=== PATIENT | male | born 1955 | race Caucasian/White ===

== ENCOUNTER 2016-11-11 07:05 | Day surgery (SDC) | payer BC ==
[~2016-11-11 07:05] MED LIST: ALPRAZolam 0.25 MG TAB PO PRN; ALPRAZolam 0.5 MG TAB PO PRN; ATORVASTATIN 80 MG TAB PO STA; NITROGLYCERIN SL TABS 0.4 MG TAB SUBLINGUAL PRN; SODIUM CHLORIDE 0.9% 1,000 ML in EMPTY BAG 1 BAG IV ONE
[2016-11-11 07:50] VITALS: PULSE 54; TEMP 97.4
[2016-11-11] MEDS ORDERED: ASPIRIN 325 MG TAB PO ONE (07:52)
[2016-11-11] MEDS ORDERED: fentaNYL (PF) 50 MCG/ML 2 ML AMP IV ONE (08:47)
[2016-11-11] MEDS ORDERED: SODIUM CHLORIDE 0.9% 1,000 ML IV ONE (08:48)
[2016-11-11] MEDS ORDERED: LIDOCAINE 2% INJ 20 MG/ML SQ ONE (08:51)
[2016-11-11] MEDS ORDERED: IOHEXOL 350 MG/ML 100 ML BOTTLE INTRATHECA ONE (09:05)
[2016-11-11] MEDS ORDERED: RX INFO: IV CONTRAST WAS GIVEN 1 EACH MISC MISCELLANE PRN (09:22)
[2016-11-11] MEDS ORDERED: NITROGLYCERIN SL TABS 0.4 MG TAB SUBLINGUAL PRN (09:23)
[2016-11-11] MEDS ORDERED: SODIUM CHLORIDE 0.9% 1,000 ML IV SCH (10:30)
[2016-11-11 14:44] VITALS: BP 105/71
[2016-11-11 14:46] VITALS: RESP 18
--- NOTE | 2016-11-11 20:15 | CC ---
DATE OF SERVICE: 11/12/2015 [facility]#[id number] CLINICAL INFORMATION: Vivek Whitfield is a known patient of hypertension, hypercholesterolemia and long-standing history of smoking, current smoker and had angioplasty stenting of the right coronary done in 2011, mid and distal RCA. Has been having chest pains and positive stress echo with inferior wall hypokinesis, advised cardiac catheterization to assess severity of coronary artery disease. Patient is on appropriate medications, cannot tolerate the beta blockers without severe bradycardia. The patient is on calcium blockers and nitrates. The patient continues to smoke in spite of advised to quit smoking. Patient tolerated the procedure very well. Patient is under conscious sedation for about 35 minutes. PROCEDURE: Under local anesthesia and conscious sedation, right femoral artery is cannulated using a Seldinger technique 6 Sami sheath was placed and proceeded with right and left heart selective coronary arteriography followed by left ventriculogram and common femoral angiogram and Angio-Seal. Patient tolerated the procedure very well. There were no complications during or after completion of the procedure. HEMODYNAMIC DATA: Aortic pressure noted to be 106/64 with a mean pressure of 82. Left ventricular end-diastolic pressure following coronary arteriography noted to be 60 mmHg. There was no gradient across the aortic valve. Left ventriculogram performed in 30 degree SANTOS projection revealed a normal cardiac silhouette with well-preserved left ventricular systolic function with ejection fraction of 50-55%. SELECTIVE CORONARY ARTERIOGRAPHY: LEFT MAIN: Left main coronary artery is free of any atherosclerotic occlusive disease. LEFT ANTERIOR DESCENDING CORONARY ARTERY: Left anterior descending artery is a moderate caliber vessel free of any atherosclerotic occlusive disease throughout its course. Intermediate is a good caliber blood vessel, free of any atherosclerotic occlusive disease. CIRCUMFLEX CORONARY ARTERY: Circumflex is a nondominant limited distribution mild irregularities not exceeding 20-30% similar to what it was in 2012. RIGHT CORONARY ARTERY: Right coronary artery is totally occluded in its midsection with the distal vessels are large vessels, visualized collaterals from the left system. ASSESSMENT: Single-vessel coronary artery disease with ( ) collaterals to the distal right coronary artery from the left system. Normal left ventricular function. RECOMMENDATIONS: Continued medical therapy and risk factor modification and complete cessation of smoking would be beneficial. Patient advised limited activities. No driving for 2 days and we will see him in 2 or 3 days from now.
[2016-11-11] MEDS ORDERED: ATORVASTATIN 40 MG TAB PO SCH (21:00)
[2016-11-12] MEDS ORDERED: amLODIPine 2.5 MG TAB PO SCH (09:00)
[2016-11-12] MEDS ORDERED: LISINOPRIL 20 MG TAB PO SCH (09:00)
[2016-11-12] MEDS ORDERED: ISOSORBIDE MONONITRATE ER 30 MG TAB.ER.24H PO SCH (09:00)
== END 2016-11-11 14:35 | disposition home or self-care (01) ==
LOC: CATHCVL 07:05
PROVIDERS: ATTEND Internal Medicine Interventional Cardiology
DX: I25.110 Atherosclerotic heart disease of native coronary artery with unstable angina pectoris (principal); I10 Essential (primary) hypertension; E78.00 Pure hypercholesterolemia, unspecified; R94.39 Abnormal result of other cardiovascular function study; E78.5 Hyperlipidemia, unspecified; Z95.5 Presence of coronary angioplasty implant and graft; J44.9 Chronic obstructive pulmonary disease, unspecified; K21.9 Gastro-esophageal reflux disease without esophagitis; Z82.49 Family history of ischemic heart disease and other diseases of the circulatory system; I25.2 Old myocardial infarction; F17.210 Nicotine dependence, cigarettes, uncomplicated; Z79.82 Long term (current) use of aspirin; Z79.899 Other long term (current) drug therapy; Z88.6 Allergy status to analgesic agent
CPT/HCPCS: 93458; 99152; C1760; C1894; C1769; J2001; Q9967; J3010

== ENCOUNTER → 2018-10-06 | Outpatient (CLI) | payer BC ==
[2018-10-06 08:40] LABS: HCT 47.9 % (39.0-53.0); MCH 32.5 pg (25.0-35.0); MCHC 33.5 g/dL (31.0-37.0); MCV 97.1 fL (80.0-100.0); Platelet Count 221 k/uL (150-450); RBC 4.93 m/uL (4.30-5.90); RDW 12.9 % (11.5-15.5); WBC 6.2 k/uL (3.8-10.6)
[2018-10-06 08:54] LABS: Anion Gap 5 mmol/L; Blood Urea Nitrogen 12 mg/dL (9-20); Carbon Dioxide 28 mmol/L (22-30); Chloride 106 mmol/L (98-107); Potassium 4.6 mmol/L (3.5-5.1); Sodium 139 mmol/L (137-145)
== END | disposition home or self-care (01) ==
LOC: LABWHC1 08:07
PROVIDERS: ATTEND Internal Medicine Interventional Cardiology
DX: Z01.812 Encounter for preprocedural laboratory examination (principal); I25.10 Atherosclerotic heart disease of native coronary artery without angina pectoris; E78.00 Pure hypercholesterolemia, unspecified
CPT/HCPCS: 36415; 80051; 82565; 84520; 85027

== ENCOUNTER 2018-10-16 09:31 | Day surgery (SDC) | payer BC ==
[2018-10-13 16:10] VITALS: BMI 23.3
[~2018-10-16 09:31] MED LIST changes: +ATORVASTATIN 80 MG TAB PO ONE; -ATORVASTATIN 80 MG TAB PO STA
[2018-10-16] MEDS ORDERED: SODIUM CHLORIDE 0.9% 1,000 ML IV ONE (09:50)
[2018-10-16 10:08] VITALS: TEMP 97.8
[2018-10-16] MEDS ORDERED: VERAPAMIL 2.5 MG/ML 2 ML AMP ONE (10:10)
[2018-10-16] MEDS ORDERED: LIDOCAINE 1% INJ 10MG/ML (20 ML MDV) ONE (10:11)
[2018-10-16] MEDS ORDERED: HEPARIN SODIUM 1,000 UN/ML (10ML VL) ONE (10:11)
[2018-10-16] MEDS ORDERED: MIDAZOLAM (PF) 2 MG/2 ML VIAL IVP ONE (10:42)
[2018-10-16] MEDS ORDERED: LIDOCAINE 1% INJ 10MG/ML (20 ML MDV) SQ ONE (10:48)
[2018-10-16] MEDS ORDERED: IOPAMIDOL-370 125ML BTL INJ ONE (10:58)
[2018-10-16] MEDS ORDERED: RX INFO: IV CONTRAST WAS GIVEN 1 EACH MISC MISCELLANE PRN (11:05)
[2018-10-16] MEDS ORDERED: SODIUM CHLORIDE 0.9% 1,000 ML IV SCH (11:15)
[2018-10-16 11:24] VITALS: RESP 16
--- NOTE | 2018-10-16 12:14 | CC ---
CARDIAC CATHETERIZATION REPORT DATE OF SERVICE: 10/16/2018 PERFORMING PHYSICIAN: Stan Carranza MD, Sound Equipment Mechanic. PROCEDURE PERFORMED: 1. Selective right and left coronary angiogram. 2. Left heart catheterization. INDICATION: This is a pleasant 70-year-old gentleman with history of coronary artery disease and prior stenting of the RCA and left circumflex, was experiencing symptoms of chest discomfort concerning for angina. Unfortunately, he continues to smoke. Because of that, a heart catheterization was advised. APPROACH: Right common femoral artery. COMPLICATION: None LEVEL OF SEDATION: Moderate with sedation length of 12 minutes. PROCEDURE DESCRIPTION: After obtaining an informed consent, the patient was brought to the cardiac ship laborer. The right common femoral artery was cannulated using micropuncture technique, the micropuncture wire passed easily then I placed a 6-[place] sheath in the right common femoral artery. After that, I did selective right and left coronary angiogram using JR3.5 and JL3.5 catheters. Left heart catheterization was performed using 5-Pakistani pigtail catheter. The procedure was completed without any complication. SELECTIVE CORONARY ANGIOGRAM: 1. The RCA is stented in the proximal, mid and distal portion. The stents are patent. The RCA distally bifurcates into PDA and PLV branches, both appeared to be angiographically normal. 2. The left main is angiographically normal. It bifurcates into left circumflex, ramus intermedius, and left anterior descending artery. 3. The left circumflex is a large caliber vessel and is a nondominant vessel. The left circumflex appeared to be angiographically normal. 4. The ramus intermedius appeared to be a moderate caliber vessel and seems to be angiographically patent stents in both the RCA and LCX. POSTPROCEDURE MANAGEMENT: 1. Maximize medical treatment. 2. Smoking cessation. MMODL / IJN: [id number] /
[2018-10-16 18:25] VITALS: BP 125/86; PULSE 48
== END 2018-10-16 18:20 | disposition home or self-care (01) ==
LOC: CATHCVL 09:31
PROVIDERS: ATTEND Internal Medicine Interventional Cardiology
DX: I25.110 Atherosclerotic heart disease of native coronary artery with unstable angina pectoris (principal); I10 Essential (primary) hypertension; E78.5 Hyperlipidemia, unspecified; E78.00 Pure hypercholesterolemia, unspecified; F17.290 Nicotine dependence, other tobacco product, uncomplicated; F17.210 Nicotine dependence, cigarettes, uncomplicated; I73.9 Peripheral vascular disease, unspecified; Z95.5 Presence of coronary angioplasty implant and graft; Z82.49 Family history of ischemic heart disease and other diseases of the circulatory system; Z79.82 Long term (current) use of aspirin; Z79.02 Long term (current) use of antithrombotics/antiplatelets; Z79.899 Other long term (current) drug therapy; Z88.6 Allergy status to analgesic agent
CPT/HCPCS: 93458; C1760; C1769 ×2; C1894; J2001; Q9967; J2250; 93454

== ENCOUNTER 2020-06-29 07:47 | Day surgery (SDC) | payer BC, OTHER ==
[2020-06-27 09:35] VITALS: BMI 23.2
[~2020-06-29 07:47] MED LIST changes: +ASPIRIN 325 MG TAB PO STA; -ATORVASTATIN 80 MG TAB PO ONE; +ATORVASTATIN 80 MG TAB PO STA
[2020-06-29 08:34] VITALS: RESP 16; TEMP 97.4
[2020-06-29] MEDS ORDERED: LIDOCAINE 1% INJ 10MG/ML (20 ML MDV) ONE (08:47)
[2020-06-29] MEDS ORDERED: LIDOCAINE 1% INJ 10MG/ML (20 ML MDV) SQ ONE (08:59)
[2020-06-29] MEDS ORDERED: MIDAZOLAM 2 MG/2 ML VIAL IV ONE (08:59)
[2020-06-29] MEDS ORDERED: IOPAMIDOL-370 125ML BTL INJ ONE (09:08)
[2020-06-29] MEDS ORDERED: RX INFO: IV CONTRAST WAS GIVEN 1 EACH MISC MISCELLANE PRN (09:15)
[2020-06-29] MEDS ORDERED: SODIUM CHLORIDE 0.9% 1,000 ML IV SCH (09:15)
--- NOTE | 2020-06-29 11:44 | CC ---
CARDIAC CATHETERIZATION REPORT DATE OF SERVICE: June 29, 2020 PERFORMING PHYSICIAN: Stan Carranza MD. PROCEDURE PERFORMED: 1. Selective right and left coronary angiogram. 2. Left heart catheterization. INDICATION: This is a 64-year-old gentleman with coronary artery disease and prior stenting of the RCA and LCX as well as hypertension and dyslipidemia who was experiencing symptoms of shortness of breath with exertion. He underwent a stress test and that came in to be abnormal with moderate size reversible defect involving the basal inferior wall of the LV. Because of that, a heart catheterization was advised. APPROACH: Right common femoral artery. COMPLICATION: None. LEVEL OF SEDATION: Moderate with sedation length of 11 minutes. PROCEDURE DESCRIPTION: After obtaining an informed consent, the patient was brought to the cardiac tree tapping laborer. The right common femoral artery was cannulated using micropuncture technique, the micropuncture wire passed easily then I placed a 6-[place] sheath at the right common femoral artery. Selective right and left coronary angiogram done using JR3.5 and JL3.5 catheters. Left heart catheterization was performed using a pigtail catheter which was 5-[place]. The procedure was completed without any complication. SELECTIVE CORONARY ANGIOGRAM: 1. The RCA is a large caliber vessel and it is a dominant vessel. The RCA is stented on the long segment. There was mild in-stent restenosis only. 2. The left main does have mild disease only. Bifurcates into LCX and ramus intermedius and left anterior descending artery. 3. The left circumflex is a moderate caliber vessel. It is a nondominant vessel. The left circumflex appeared to have mild disease only. 4. The ramus intermedius appeared to have mild disease only as well. 5. The LAD is a large caliber vessel. The LAD is angiographically normal. It gives rise in the proximal portion into a large diagonal branch which seems to be angiographically normal. HEMODYNAMICS: The LVEDP was about 8-10 mmHg without significant gradient across the aortic valve. CONCLUSION: 1. Mild in-stent restenosis involving the right coronary artery. 2. Mild disease involving the left coronary system. 3. Normal LVEDP. POSTPROCEDURE MANAGEMENT: 1. Medical treatment. 2. Follow up with the patient. MMODL / IJN: [id number] /
[2020-06-29 16:20] VITALS: BP 97/62; PULSE 52
== END 2020-06-29 13:57 | disposition home or self-care (01) ==
LOC: CATHCVL 07:47
PROVIDERS: ATTEND Internal Medicine Interventional Cardiology
DX: I25.110 Atherosclerotic heart disease of native coronary artery with unstable angina pectoris (principal); T82.855A Stenosis of coronary artery stent, initial encounter; I10 Essential (primary) hypertension; E78.00 Pure hypercholesterolemia, unspecified; E78.5 Hyperlipidemia, unspecified; F17.200 Nicotine dependence, unspecified, uncomplicated; Z79.1 Long term (current) use of non-steroidal anti-inflammatories (NSAID); Z79.02 Long term (current) use of antithrombotics/antiplatelets; Z79.82 Long term (current) use of aspirin; Z88.6 Allergy status to analgesic agent
CPT/HCPCS: 93458; C1894; C1769; C1760; J2250; J2001; Q9967